=== PATIENT | male | born 1990 | race Two or more races ===

== ENCOUNTER 2016-11-30 05:46 | Day surgery (SDC) | payer OTHER ==
[~2016-11-30] VITALS: Ht 172.7 cm; Wt 76.6 kg
[2016-11-30 06:32] VITALS: Ht 172.7 cm; Wt 76.6 kg
[2016-11-30] MEDS ORDERED: ZANTAC (06:36)
[2016-11-30 07:20] VITALS: BP 139/82; PULSE 98; RESP 18
[2016-11-30] MEDS ORDERED: MIDAZOLAM 1 MG/ML 2 ML INJ ONE ×3 (07:40)
[2016-11-30] MEDS ORDERED: FENTAnyl 50 MCG/ML VIAL ONE (07:40)
[2016-11-30 08:05] VITALS: BP 111/67; PULSE 92; RESP 12
--- NOTE | 2016-11-30 10:15 | GILP ---
DATE OF PROCEDURE: NAME OF PROCEDURE: Esophagogastroduodenoscopy and biopsy. SURGEON: Skyler Cleveland MD PREOPERATIVE DIAGNOSES: 1. Chronic heartburn. 2. Noncardiac chest pain. POSTOPERATIVE DIAGNOSES: 1. Hiatal hernia. 2. Gastroesophageal reflux disease. 3. Gastritis with erosions. 4. Gastric mucosal biopsies were taken for Helicobacter pylori test. INDICATION FOR THE PROCEDURE: Mr. Bhavesh Ortiz is a 26-year-old male patient who had chronic h eartburn and noncardiac chest pain. The patient was scheduled for endoscopic examination for further evaluation. The procedure and possible complications were well explained to the patient, he understood and conse nted to the procedure. DESCRIPTION OF PROCEDURE: Under the influence of fentanyl and Versed, the gastroscope was carefully introduced into the esophagus and under direct vision, it was advanced to the stomach and through t he pylorus into the duodenal bulb and descending duodenum. FINDINGS: ESOPHAGUS: The patient had hiatal hernia and gastroesophageal reflux disease. STOMACH: He had gastritis with erosions. Gastric mucosal biopsies were taken for H. pylori test. DUODENUM: He tolerated the procedure very well and there was no complication from the procedure. A t the end of the procedure, he was awake with stable vital signs and he was discharged home to the [facility] his family. IMPRESSION: 1. Hiatal hernia. 2. Gastroesophageal reflux disease. 3. Gastritis with erosions. 4. Gastric mucosal biopsies were taken for Helicobacter pylori test. PLAN: 1. Omeprazole 40 mg p.o. q.a.m. 2. Await H. pylori test report. Dictated By: SKYLER ANAND/MABEL Conf#: [id number] DID#: [id number]
== END 2016-11-30 10:38 | disposition home or self-care (01) ==
LOC: GIL 05:46
PROVIDERS: ATTEND Internal Medicine Gastroenterology
DX: K44.9 Diaphragmatic hernia without obstruction or gangrene (principal); K21.9 Gastro-esophageal reflux disease without esophagitis; K29.60 Other gastritis without bleeding
CPT/HCPCS: 43239; 87081; 88300; J2250; J3010; Z7610